=== PATIENT | male | born 1975 | race Caucasian/White ===

== ENCOUNTER 2020-11-05 05:38 | Emergency (ER) | payer SELFPAY ==
--- NOTE | ~2020-11-05 | CT_ITS ---
EXAMINATION: CT abdomen pelvis w con INDICATION: Lower abdominal pain TECHNIQUE: Computed tomographic images of the abdomen and pelvis were obtained after the administrati on of 100 cc of Omnipaque 350 intravenous contrast. The dose-length product (DLP) was 420.04 mGy-cm. Automated exposure control and iterative reconstruction technique were employed. COMPARISON: None available FINDINGS: Minimal dependent atelectasis is present in the lung bases. The heart size is normal. Altho ugh limited by motion artifact, there appears to be a partially calcified mass of the right ventricle . There is a 10 mm area of enhancement in the right hepatic lobe. 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 The pancreas, gallbladder, and adrenal glands are normal. There is a 2.4 cm cyst of the left kidney. The right kidney is unremarkable. No pathologically enlarged abd ominal or pelvic lymph nodes are identified. A moderate volume of colonic stool is present. There is no free intraperitoneal gas or evidence of bowel obstruction. A tiny fat-containing epigastric hernia is noted. IMPRESSION: 1. Constipation. 2. Apparent partially calcified mass of the right ventricle, evaluation limited by motion artifact. D ifferential includes myxoma and other primary cardiac neoplasms. Nonemergent follow-up is recommended . 3. 2 mm hyperenhancing focus of the right hepatic lobe likely reflecting flash filling hemangioma or focal nodular hyperplasia in the absence of known malignancy. Reviewed, dictated and finalized at location A. IMPRESSION: 1. Constipation. 2. Apparent partially calcified mass of the right ventricle, evaluation limited by motion artifact. Differential includes myxoma and other primary cardiac rosalinda plasms. Nonemergent follow-up is recommended. 3. 2 mm hyperenhancing focus of the right hepatic lobe likely reflecting flash filling hemangioma or focal nodular hyperplasia in the absence of known maligna ncy.
[2020-11-05 05:44] VITALS: BP 144/89; PULSE 60; RESP 20; TEMP 36.8; O2SAT 100
[2020-11-05] MEDS: fentaNYL CITRATE INJ (*CRX) 100 MCG/2 ML VIAL 50 MCG IV PUSH (06:13)
[2020-11-05] MEDS: SODIUM CHLORIDE 0.9% IV 1,000 ML 999 ML IV CONT (06:13)
[2020-11-05 06:14] LABS: Basophils Absolute Auto 0.1 K/mm3 (0.0-0.1); Eosinophils Absolute Auto 0.2 K/mm3 (0-0.3); Eosinophils Percent Auto 1.6 % (0-4.4); Hematocrit 50.4 % (42.0-52.0); Hemoglobin 17.3 g/dL (14.0-18.0); Immature Granulocyte Absolute 0.06 K/mm3 (0.00-0.031); Immature Granulocyte Percent A 0.5 % (0-0.5); Lymphocytes Absolute Auto 3.67 K/mm3 (0.9-3.2); Lymphocytes Percent Auto 31.8 % (18.3-44.2); Mean Corpuscular HGB Conc 34.3 g/dl (32-36); Mean Corpuscular Hemoglobin 31.6 pg (26-34); Mean Corpuscular Volume 92.1 fl (80-100); Mean Platelet Volume 10.7 fl (7.4-10.4); Monocytes Absolute Auto 1.4 K/mm3 (0.1-0.6); Monocytes Percent Auto 12.3 % (2.6-8.5); Neutrophils Absolute Auto 6.1 K/mm3 (1.3-6.7); Neutrophils Percent Auto 52.8 % (45.5-73.1); Platelet Count Result 272 k/mm3 (150-375); Red Blood Count 5.47 M/mm3 (4.6-6.20); Red Cell Distribution Width 13.9 % (11.5-14.5); White Blood Count 11.5 K/mm3 (4.5-10.0)
[2020-11-05 06:18] LABS: Alanine Aminotransferase 17 U/L (4-50); Albumin Level 4.3 g/dL (3.5-5.1); Alkaline Phosphatase 64 U/L (38-126); Anion Gap 4 mmol/L (8-16); Aspartate Amino Transferase 30 U/L (17-59); Bilirubin,Total 0.8 mg/dL (0.2-1.3); Blood Urea Nitrogen 9 mg/dL (9-20); Calcium 9.3 mg/dL (8.4-10.2); Carbon Dioxide 28 mmol/L (22-30); Chloride 107 mmol/L (98-107); Estimated CRCL calculation 125 ml/min; Estimated Glomerular Filt Rate > 60; Glucose 106 mg/dL (65-110); Lipase 31 U/L (23-300); Sodium 139 mmol/L (137-145)
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
[2020-11-05 07:18] LABS: Add Urine Microscopic? YES; Appearance Urine Clear (Clear); Bilirubin Urine Negative (Negative); Blood Urine Negative (Negative); Color Urine Yellow (Yellow); Glucose Urine UA Negative (Negative); Ketones Urine Negative (Negative); Leukocyte Esterase Ur Negative LEU/UL (Negative); Mucus Urine Rare /lpf; Nitrate Urine Negative (Negative); Protein Urine 1+ mg/dL (Negative); Specific Grav Ur 1.016 (1.001-1.035); WBC Urine 0-3 /hpf
[2020-11-05] MEDS: DOCUSATE SODIUM 100 MG CAPSULE 200 MG PO (08:27)
[2020-11-05] MEDS: polyethylene glycoL 3350 238 GM BOTTLE 17 GM PO (08:28)
[2020-11-05 08:29] VITALS: BP 140/86; PULSE 58; RESP 18; O2SAT 99
== END 2020-11-05 08:30 | disposition home or self-care (01) ==
PROVIDERS: Emergency Medicine; Emergency Provider Emergency Medicine
DX: K59.00 Constipation, unspecified (principal); R10.30 Lower abdominal pain, unspecified; R93.2 Abnormal findings on diagnostic imaging of liver and biliary tract; R93.1 Abnormal findings on diagnostic imaging of heart and coronary circulation
CPT/HCPCS: 36415; 74177; 80053; 81001; 83690; 85025; 96361; 96374; 99284; A9270; J3010; J7030; Q9967

== ENCOUNTER 2021-04-20 16:29 | Emergency (ER) | payer SELFPAY ==
[2021-04-20 16:46] VITALS: BP 161/101; PULSE 80; RESP 16; TEMP 36.1; O2SAT 100
--- NOTE | 2021-04-20 17:05 | ED.GENADULT ---
HPI - General Adult General Chief complaint: Urogenital-Male Stated complaint: Abdominal Pain Source: patient and EMS Mode of arrival: ambulatory History of Present Illness HPI narrative: This is a 45-year-old male that presented to urgent care with complaints abdominal soreness due to a muscle strain. Patient is a [employer] worker and notes that he has had this condition in the past and have taken ibuprofen at home for his symptoms. Patient notes that he does not like taking many medication he refuses to take any other medication. Patient blood pressure elevated refused to take clonidine to control his blood pressure. Patient does not have health insurance and does not have a primary care physician. Patient may reason for coming to urgent care was to get a doctor statement for work. The patient denies SOB, CP, palpitation, extremity numbness, lightheadedness, dizziness, constipation, diarrhea, chills, or fever. Related Data Home Medications Medication Instructions Recorded Confirmed No Home Medications 04/20/21 04/20/21 Allergies Allergy/AdvReac Type Severity Reaction Status Date / Time No Known Allergies Allergy Verified 04/20/21 16:39 Review of Systems Review of Systems: A 14 organ system Review of Systems was performed and pertinent positives included in the HPI, otherwise remaining ROS is negative. Exam Narrative: GENERAL: This is a well-nourished, well-developed patient, in no apparent distress. HEAD: normocephalic, atraumatic. EYES: PERRL. Sclera clear/white. Vision is grossly intact. EARS: External ears normal, auditory canals clear and without drainage, TMs normal without perforation. Hearing grossly intact. NOSE: External nose normal with no obvious nasal discharge, nares without redness, no rhinorrhea. THROAT: Mucous membranes moist, posterior pharynx clear. NECK: Neck supple, non-tender without lymphadenopathy, masses or thyromegaly. CARDIOVASCULAR: Regular rate and rhythm without murmurs, gallops, or rubs. RESPIRATORY: Clear to auscultation. Breath sounds equal bilaterally. No wheezes, rales, or rhonchi. GASTROINTESTINAL: Abdomen soft, tender with palpation, nondistended. Bowel sounds are active. No hepato-splenomegaly, or palpable masses. No guarding. SKIN: warm, intact with no suspicious lesions or rash, good texture and turgor. NEURO: awake, alert, and oriented to person, place and time. There were no obvious focal neurologic abnormalities. Steady gait EXTREMITIES: Normal range of motion. No edema. No calf tenderness. Negative Homans sign bilaterally. BACK: Nontender without deformity or crepitance. No flank tenderness. Course Course Emergency Course: Patient refused all medication requesting note for work Level of Care: Express Care Visit Vital Signs Vital signs: Vital Signs Temperature 97.0 F L 04/20/21 16:46 Pulse Rate 80 04/20/21 16:46 Respiratory Rate 16 04/20/21 16:46 Blood Pressure 161/101 H 04/20/21 16:46 Pulse Oximetry 100 04/20/21 16:46 Temperature 97.0 F L 04/20/21 16:46 Pulse Rate 80 04/20/21 16:46 Respiratory Rate 16 04/20/21 16:46 Blood Pressure 161/101 H 04/20/21 16:46 Pulse Oximetry 100 04/20/21 16:46 Medical Decision Making Differential Diagnosis Differential Diagnosis: Muscle strain or sprain versus gastritis versus hernia Vital Signs Vital Signs: Vital Signs Temperature 97.0 F L 04/20/21 16:46 Pulse Rate 80 04/20/21 16:46 Respiratory Rate 16 04/20/21 16:46 Blood Pressure 161/101 H 04/20/21 16:46 Pulse Oximetry 100 04/20/21 16:46 Temperature 97.0 F L 04/20/21 16:46 Pulse Rate 80 04/20/21 16:46 Respiratory Rate 16 04/20/21 16:46 Blood Pressure 161/101 H 04/20/21 16:46 Pulse Oximetry 100 04/20/21 16:46 Discharge Plan Discharge Clinical Impression: Sprain of abdominal wall Patient Disposition: Home, Self-Care Condition: Stable Instructions: Antibiotic Form, Sprain (ED) Additional Instruct
== END 2021-04-20 17:04 | disposition home or self-care (01) ==
PROVIDERS: Emergency Provider Nurse Practitioner
DX: S39.81XA Other specified injuries of abdomen, initial encounter (principal); X58.XXXA Exposure to other specified factors, initial encounter; R03.0 Elevated blood-pressure reading, without diagnosis of hypertension
CPT/HCPCS: 99212; G0463

== ENCOUNTER 2025-01-02 11:54 | Emergency (ER) | payer SELFPAY ==
--- OUTSIDE RECORDS SUMMARY | 2025-01-02 11:58 | XMS_ITS | Clinical Summary ---
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
--- OUTSIDE RECORDS SUMMARY | 2025-01-02 11:58 | XMS_ITS | Encounter Summary ---
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
--- OUTSIDE RECORDS SUMMARY | 2025-01-02 11:58 | XMS_ITS | Encounter Summary ---
Author Organization [employer] Address [address] [place] [address] Care Team Providers Care Environmental Science Instructor Name Role Phone Unavailable Primary Care Provider Unavailabl e Encounter Details Date Type Department Care Team (Latest Contact Info) Description 01/14/1998 Inpatient Historical [facility] PATIENT IN A BED Foster Daly MD [address] [facility] [place] [address] Capsular tears to spleen, without major disruption of parenchyma or mention of open wound into cavity (Primary Dx) Social History Tobacco Use Types Packs/Day Years Used Date Smoking Tobacco: Never Assessed Sex and Gender Information Value Date Recorded Sex Assigned at Not on file 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
--- OUTSIDE RECORDS SUMMARY | 2025-01-02 11:58 | XMS_ITS | Clinical Summary ---
Author Organization [facility] Address [address] 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
--- OUTSIDE RECORDS SUMMARY | 2025-01-02 11:58 | XMS_ITS | Encounter Summary ---
Author Organization [employer] Address 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
--- OUTSIDE RECORDS SUMMARY | 2025-01-02 11:58 | XMS_ITS | Encounter Summary ---
Author Organization [employer] Address 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
[2025-01-02 12:05] VITALS: BP 148/92; PULSE 74; RESP 18; TEMP 36.2; O2SAT 98
--- NOTE | 2025-01-02 12:32 | ED.EYEPROB ---
HPI - Eye Problem General Chief complaint: Upper Respiratory Infection Stated complaint: sinus Time Seen by Provider: 01/02/25 12:15 Source: patient and RN notes reviewed Mode of arrival: ambulatory Limitations: no limitations History of Present Illness HPI Narrative: 49-year-old male presents to the [facility] complaining of right eye problem for approximately 3 weeks. Patient says he is unable is cm is right eye and that is vision is completely black in the right eye. Patient denies any vision complaints left eye. Patient also reports a headache and pressure in his right eye. Patient denies any nausea vomiting, fevers, eczema chills, upper respiratory symptoms, focal weakness, slurred speech, facial droop, dizziness, lightheadedness, or any other symptoms. Patient denies any significant past medical problems, he does not see a doctor regularly. Patient does have a history of smoking. Related Data Home Medications ?Medication ?Instructions ?Recorded ?Confirmed ?Last Taken ?Type No Home Medications 04/20/21 04/20/21 Unknown History Allergies Allergy/AdvReac Type Severity Reaction Status Date / Time No Known Allergies Allergy Verified 01/02/25 11:56 Review of Systems Review of Systems: CONSTITUTIONAL: Denies fever, chills, or sweats. EYES: Denies flu redness, or discharge. Positive for right eye blindness and high pressure. ENT: Denies rhinorrhea, congestion, sore throat, or otalgia. CARDIOVASCULAR: Denies chest pain, palpitations, dizziness, lightheadedness, or edema. RESPIRATORY: Denies cough or dyspnea. GASTROINTESTINAL: Denies abdominal pain, nausea, vomiting, or diarrhea. GENITOURINARY: Denies dysuria or hematuria. SKIN: Denies rash or itching. MUSCULOSKELETAL: Denies back pain, joint pain, or myalgia. NEUROLOGIC: Positive for headaches. Negative for numbness, slurred speech, facial droop, loss of consciousness, focal weakness, or weakness. PSYCHIATRIC: Denies anxiety or depression. All other systems reviewed are negative, except as documented in HPI. PMFSH Comments At the time of my signature, I reviewed and agree with the nursing past medical, surgical, social, and family history. There is no relevant family history pertinent to the patient complaint. Exam Narrative: GENERAL: This is a well-nourished, well-developed adult, in no apparent distress. They are non ill-appearing, nontoxic appearing. HEAD: normocephalic, atraumatic. EYES: Left Sclera clear/white. Left Conjunctiva normal. Vision is absent to right eye.. Extraocular movements intact left pupil normal. Right pupil nonreactive, dilated, irregularly-shaped, right eye injected, normal movements of bilateral upper and lower eyelids. Right eyelid crusty, no obvious discharge present. No nystagmus. EARS: External ears normal,Hearing grossly intact. NOSE: External nose normal THROAT: Mucous membranes moist, NECK: Neck supple, non-tender without lymphadenopathy, masses or thyromegaly. CARDIOVASCULAR: Regular rate and rhythm without murmurs, gallops, or rubs. RESPIRATORY: Clear to auscultation. Breath sounds equal bilaterally. No wheezes, rales, or rhonchi. SKIN: warm, Dry, intact with no suspicious lesions or rash, good texture and turgor. NEURO: awake, alert, and oriented to person, place and time. There were no obvious focal neurologic abnormalities. Dials Supervisor strength 5/5 equal bilaterally. No pronator drift. No limb ataxia. No inattention or extinction. Cranial nerve 2-12 grossly intact. Gait strong and steady. Tongue is midline. No facial droop. No slurred speech. EXTREMITIES: No joint tenderness, effusion, or edema noted. BACK: Nontender without deformity. No CVA tenderness. Course Course Emergency Course: Portions of this record may have been created with voice recognition software Level of Care: Express Care Visit Vital Signs Vital signs: Vital Signs Temperature 97.1 F L 01/02/25 12:05 Pulse Rate 74 01/02/25 12:05 Respiratory Rate 18 01/02/25 12:05 Blood Pressure 148/92 H 01/02/25 12:05 Pulse Oximetry 98 01/02/25 12:05 Oxygen Delivery Room Air 01/02/25 12:05 Temperature 97.1 F L 01/02/25 12:05 Pulse Rate 74 01/02/25 12:05 Respiratory Rate 18 01/02/25 12:05 Blood Pressure 148/92 H 01/02/25 12:05 Pulse Oximetry 98 01/02/25 12:05 Oxygen Delivery Room Air 01/02/25 12:05 Reviewed Transfer Transfered to: [facility] Hospital Transportation: Other (Private vehicle) Transfer rationale: Patient likely experiencing an ophthalmology or neurological emergency, patient requires higher level care. Accepting physician: Spoke to Brooke RUVALCABA at [facility] transfer [facility], they would not provide accepting physician but did place patient on their ER tracker, they said they do not talk to urgent cares. MDM - Eye Problem MDM Narrative Medical decision making narrative: Patient's right eye is completely blind, patient able to see out of his left eye. Patient's right pupil is dilated, irregular, and nonreactive. Extraocular movements are intact. No james pen present to obtain eye pressures. Patient otherwise neurologically intact no neuro deficits noted. Patient's symptoms have been persistent for the last 3 weeks. Patient would benefit from an ER transfer preferably with the facility with ophthalmology. Given patient's symptoms, it is recommend the patient seek a higher level care and proceed immediately to the emergency department. Advised patient that it be best to go to [facility] ER as a likely be transferred from the local hospital in area for ophthalmology. Patient is agreeable to go [facility] ER. Called over to the [facility] transfer center and spoke to Brooke RUVALCABA at [facility] transfer [place] who is aware this patient, they would not provide accepting physician but did place patient on their ER tracker, they said the ER does not take reports for urgent cares. Offered patient EMS to take him to the hospital he declined. Patient said he has been driving himself around the last few weeks in setting drive himself to the hospital via private vehicle. Encourage patient to get a ride to the hospital given his vision problems. Patient advised to remain NPO and proceed immediately to the ER. Patient is hemodynamically stable to take himself to the hospital via private vehicle. 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
== END 2025-01-02 12:30 | disposition short-term general hospital (02) ==
DX: H54.61 Unqualified visual loss, right eye, normal vision left eye (principal); H57.89 Other specified disorders of eye and adnexa
CPT/HCPCS: 99212; G0463